=== PATIENT | female | born 1980 | race African-American/Black ===

== ENCOUNTER 2018-06-02 18:21 | Emergency (ER) | payer SELFPAY ==
--- NOTE | 2018-06-02 20:10 | ER Document Report ---
ED Headache - General Chief Complaint: Headache Stated Complaint: HEADACHE, NAUSEA Time Seen by Provider: 06/02/18 20:00 Mode of Arrival: Ambulatory Information source: Patient Notes: Patient presents to the ED with complaints of right sided headache x 5 days. Patient describes the pain as a dull pressure behind the R eye and in the R maxillary area. No radiation. Pain worse with light, bending over, and palpation. Alleviated with tylenol. She has intermittent nausea. She denies trauma or injury. Patient denies abrupt onset of the headache. She has had similar headaches in the past but this one is different because it continues to come back. She denies fever, chills, neck pain. Patient also noticed that they've been using hot bread baker pesticide in their home every day for 4 months. The directions say once a week. Patient contacted the company and they said to go to the ED for evaluation. TRAVEL OUTSIDE OF THE [place] IN LAST 30 DAYS: No - HPI Patient complains to provider of: Headache Onset: Last week Onset was: Gradual Timing: Gone now Quality of pain: Throbbing Severity: Mild Context: denies: CO exposure, Head injury Associated symptoms: Nausea/vomiting Exacerbated by: Light, Other - palpation, bending over Similar symptoms previously: Yes Recently seen / treated by doctor: No - Related Data Allergies/Adverse Reactions: No Known Allergies Allergy (Verified 05/07/13 17:55) Past Medical History - General Information source: Patient - Social History Smoking Status: Current Every Day Smoker Frequency of alcohol use: Occasional Drug Abuse: None Family History: Reviewed & Not Pertinent Patient has suicidal ideation: No Patient has homicidal ideation: No Renal/ Medical History: Denies: Hx Peritoneal Dialysis - Immunizations Hx Diphtheria, Pertussis, Tetanus Vaccination: No Review of Systems - Review of Systems Constitutional: No symptoms reported EENT: Sinus pressure Cardiovascular: No symptoms reported Respiratory: No symptoms reported Gastrointestinal: Nausea Genitourinary: No symptoms reported Female Genitourinary: No symptoms reported Musculoskeletal: No symptoms reported Skin: No symptoms reported Hematologic/Lymphatic: No symptoms reported Neurological/Psychological: No symptoms reported -: Yes All other systems reviewed and negative Physical Exam - Notes Notes: PHYSICAL EXAMINATION: GENERAL: Well-appearing, well-nourished and in no acute distress. HEAD: Atraumatic, normocephalic. EYES: Pupils equal round and reactive to light, extraocular movements intact, conjunctiva are normal. Right maxillary sinus tenderness with palpation. ENT: Nares patent, oropharynx clear without exudates. Moist mucous membranes. NECK: Normal range of motion, supple without lymphadenopathy LUNGS: Breath sounds clear to auscultation bilaterally and equal. No wheezes rales or rhonchi. HEART: Regular rate and rhythm without murmurs Female : deferred Musculoskeletal: Normal range of motion, no pitting or edema. No cyanosis. NEUROLOGICAL: Cranial nerves grossly intact. Normal speech, normal gait. Normal sensory, motor exams PSYCH: Normal mood, normal affect. SKIN: Warm, Dry, normal turgor, no rashes or lesions noted. Course - Re-evaluation Re-evalutation: 06/02/18 20:18 Pain exacerbated with palpation of the R maxillary sinus and with bending over. She took tylenol prior to arrival and says that it has significantly reduced her headache. Neuro exam was done and is completely normal. Patient likely has sinusitis. I instructed the patient to continue taking Tylenol for symptom relief as this resolves her headache. I told her that she could also take [id number] Sudafed for symptoms. I instructed her to follow-up with her primary care physician this week and to return for any worsening symptoms. Patient feels comfortable with the plan of care. 06/02/18 20:22 Discharge - Discharge Clinical Impression: Sinusitis Qualifiers: Sinusitis location: maxillary Chronicity: acute Recurrence: not specified as recurrent Qualified Code(s): J01.00 - Acute maxillary sinusitis, unspecified Condition: Good Disposition: HOME, SELF-CARE Instructions: Sinusitis ([facility]) Prescriptions: Amox Tr/Potassium Clavulanate [Augmentin 875-125 Tablet] 1 tab PO BID 7 Days #14 tablet Referrals: RONALD SPEARS MD [ACTIVE STAFF] - Follow up as needed
[2018-06-02 20:26] VITALS: BP 139/85
== END 2018-06-02 20:29 | disposition home or self-care (01) ==
LOC: ER 18:21
DX: J01.00 Acute maxillary sinusitis, unspecified (principal); R51 Headache; R11.2 Nausea with vomiting, unspecified; F17.200 Nicotine dependence, unspecified, uncomplicated; Z77.098 Contact with and (suspected) exposure to other hazardous, chiefly nonmedicinal, chemicals
CPT/HCPCS: 82962; 99284

== ENCOUNTER 2018-06-07 15:10 | Emergency (ER) | payer SELFPAY ==
[2018-06-07 15:35] VITALS: BP 124/66
--- NOTE | 2018-06-07 16:11 | ER Document Report ---
HPI - HPI Patient complains to provider of: Headache sinus pain Time Seen by Provider: 06/07/18 15:53 Onset: Other Onset/Duration: Persistent Quality of pain: Pressure Severity: Severe Pain Level: 4 Context: Patient presents to the emergency department with complaints of headache sinus pain. She was evaluated for same symptoms on June 02. She was placed on antibiotics pain medication and Claritin. She reports she is still hurting even while she is taking the pain medication. She denies fever vomiting diarrhea. She reports she is never had sinus issues in the past. Is not new to the area. She complains the pain is right frontal, pressure feeling. Denies increased pain when she bends over. No complaints of visual issues. No complaints of dizziness. Associated Symptoms: None Exacerbated by: Denies Relieved by: Denies Similar symptoms previously: Yes Recently seen / treated by doctor: Yes - REPRODUCTIVE Reproductive: DENIES: : Past Medical History - General Information source: Patient Last Menstrual Period: 05/13/18 - Social History Smoking Status: Current Every Day Smoker Cigarette use (# per day): Yes Frequency of alcohol use: None Drug Abuse: None Lives with: Family Family History: Reviewed & Not Pertinent Patient has suicidal ideation: No Patient has homicidal ideation: No - Medical History Medical History: Negative Renal/ Medical History: Denies: Hx Peritoneal Dialysis Surgical Hx: Negative - Immunizations Hx Diphtheria, Pertussis, Tetanus Vaccination: No Vertical Provider Document - CONSTITUTIONAL Agree With Documented VS: Yes Exam Limitations: No Limitations General Appearance: WD/WN, No Apparent Distress - nonToxic looking - INFECTION CONTROL TRAVEL OUTSIDE OF THE [place] IN LAST 30 DAYS: No - HEENT HEENT: Atraumatic, Normocephalic, PERRLA. negative: Conjuctival Injection, Pharyngeal Exudate, Pharyngeal Erythema, Tympanic Membrane Red Notes: no c/o pain upon palpation of sinuses. She reports pain is deep inside. - NECK Neck: Normal Inspection, Supple. negative: Lymphadenopathy-Left, Lymphadenopathy-Right - RESPIRATORY Respiratory: No Respiratory Distress - CARDIOVASCULAR Cardiovascular: Regular Rate - MUSCULOSKELETAL/EXTREMETIES Musculoskeletal/Extremeties: MAEW, FROM - NEURO Level of Consciousness: Awake, Alert, Appropriate Motor/Sensory: No Motor Deficit - DERM Integumentary: Warm, Dry, No Rash Course - Re-evaluation Re-evalutation: 06/07/18 17:[address] Phi Peck called regarding patient's CT scan. He reports more than likely it is a sinus infection but he is concerned that a lesion cannot be excluded. advises ENT follow-up. dr ellington contacted via the hospital kraft digester operator 06/07/18 17:[address] Patient on updated on plan of care to include prolonged Augmentin Claritin and Flonase nasal sinus rinses and Afrin. She was also instructed to contact Dr. ellington on Sunday for an appointment. She verbalized understanding to all instructions. Patient declined further pain medication reports ibuprofen is working fine for her. Dictation of this chart was performed using voice recognition software; therefore, there may be some unintended grammatical errors. - Vital Signs Vital signs: Temp Pulse Resp BP Pulse Ox 98.3 F 98 18 124/66 98 06/07/18 15:34 06/07/18 15:34 06/07/18 15:34 06/07/18 15:34 06/07/18 15:34 - Diagnostic Test Radiology reviewed: Image reviewed, Reports reviewed - EXAM DESCRIPTION: CT HEAD WITHOUT COMPLETED DATE/TIME: 06/07/2018 4:20 pm REASON FOR STUDY: headache, sinus pain COMPARISON: 03/10/2009 TECHNIQUE: Axial images acquired through the brain without intravenous contrast. Images reviewed with bone, brain and subdural windows. Additional sagittal and coronal reconstructions were generated. Images stored on PACS. All CT scanners at this facility use dose modulation, iterative reconstruction, and/or weight based dosing when appropriate to reduce radiation dose to as low as reasonably achievable (ALARA). [facility]: Dose Right [facility]: CareDose [facility]: Dose Right [facility]: Teradose 4D [facility]: [employer] RADIATION DOSE: CT Rad equipment meets quality standard of care and radiation dose reduction techniques were employed. CTDIvol: 53.2 mGy. DLP: 1017 mGy-cm. mGy. LIMITATIONS: None. FINDINGS: VENTRICLES: Normal size and contour. CEREBRUM: No masses. No hemorrhage. No midline shift. No evidence for acute infarction. Normal pulido/white matter differentiation. No areas of low density in the white matter. CEREBELLUM: No masses. No hemorrhage. No alteration of density. No evidence for acute infarction. EXTRAAXIAL SPACES: No fluid collections. No masses. ORBITS AND GLOBE: No intra- or extraconal masses. Normal contour of globe without masses. CALVARIUM: No fracture. PARANASAL SINUSES: There is opacification of the left maxillary sinus and ostiomeatal complex. There is associated thinning of the medial maxillary sinus wall mild mucosal thickening within the adjacent ethmoid air cells. The retro maxillary fat planes well preserved. No evidence of intracranial or intraorbital extension. Remaining paranasal sinuses and mastoid cells are clear. Mild leftward nasal septal deviation. SOFT TISSUES: No mass or hematoma. OTHER: No other significant finding. IMPRESSION: Opacification of the left maxillary sinus with associated thinning of the medial maxillary sinus wall and middle turbinate. There is associated mild mucosal thickening of the ethmoid air cells. Findings likely related to sinus disease although underlying lesion is not entirely excluded. No evidence of intracranial, retro maxillary or orbital involvement. No additional evidence of acute intracranial abnormality. EVIDENCE OF ACUTE STROKE: NO. Case discussed with Erica Gaspar at the time of interpretation. COMMENT: Quality ID # [id number]: Final reports with documentation of one or more dose reduction techniques (e.g., Automated exposure control, adjustment of the mA and/or kV according to patient si ze, use of iterative reconstruction technique) TECHNICAL DOCUMENTATION: JOB ID: [id number] [employer]- All Rights Reserved Reading location - IP/workstation name: [email or web address]- Dictated by: PHI MORALES DO [id number] CC: ERICA GASPAR NP > 06/07/18 1648 Principal Medical Terminologist Name: PHI MORALES Provider ID: [id number] - Consults [facility] Time consulted: 17:00 Reason for consultation: 06/07/18 17:[address] bauman contacted for CT results. He advised continue Augmentin extend for 14 days, Flonase, Afrin, nasal sinus rinses, Claritin. He also requests the patient contact him on Sunday for an appointment Discharge - Discharge Clinical Impression: Sinus pain Headache Qualifiers: Headache type: unspecified Headache chronicity pattern: unspecified pattern Intractability: not intractable Qualified Code(s): R51 - Headache Sinus infection Qualifiers: Sinusitis location: unspecified location Chronicity: acute Recurrence: not specified as recurrent Qualified Code(s): J01.90 - Acute sinusitis, unspecified Condition: Stable Disposition: HOME, SELF-CARE Instructions: Augmentin ([facility]), ENT, Headache ([facility]), Use of Dntv-Yiq-Yujoojx Ibuprofen ([facility]), Nasal Sprays and Drops ([facility]) Additional Instructions: *You have been evaluated for headache, sinus infection *Take medication as prescribed *Nasal sinus rinse Twice a day *Take Tylenol or motrin as indicated *Follow up with Dr Ellington Sunday, call for an appointment *Return to ED for increasing fever, cough, worsening condition, changes, needs Prescriptions: Amox Tr/Potassium Clavulanate [Augmentin 875-125 mg Tablet] 1 tab PO BID #18 tablet Fluticasone Propionate [Flonase Nasal [place] 50 Mcg/[place] 16 gm] 1 spray NASL Q12 #1 inhaler Loratadine [Claritin 10 mg Tablet] 10 mg PO DAILY #30 tablet Oxymetazoline HCl [Afrin 0.05% Nasal [place] 15 ml Bottle] 1 spray NASL ASDIR PRN #1 bottle PRN Reason: Forms: Elevated Blood Pressure Referrals: MARCELINO ELLINGTON MD [ACTIVE STAFF] - 06/10/18 (call for an appointment Sunday)
--- NOTE | 2018-06-07 16:48 | RADIOLOGY REPORT (SQ) ---
EXAM DESCRIPTION: CT HEAD WITHOUT COMPLETED DATE/TIME: 06/07/2018 4:20 pm REASON FOR STUDY: headache, sinus pain COMPARISON: 03/10/2009 TECHNIQUE: Axial images acquired through the brain without intravenous contrast. Images reviewed wi th bone, brain and subdural windows. Additional sagittal and coronal reconstructions were generated. Images stored on PACS. All CT scanners at this facility use dose modulation, iterative reconstruction, and/or weight based d osing when appropriate to reduce radiation dose to as low as reasonably achievable (ALARA). [facility]: Dose Right [facility]: CareDose [facility]: Dose Right [facility]: Teradose 4D [facility]: [employer] RADIATION DOSE: CT Rad equipment meets quality standard of care and radiation dose reduction techniq ues were employed. CTDIvol: 53.2 mGy. DLP: 1017 mGy-cm. mGy. LIMITATIONS: None. FINDINGS: VENTRICLES: Normal size and contour. CEREBRUM: No masses. No hemorrhage. No midline shift. No evidence for acute infarction. Normal gra y/white matter differentiation. No areas of low density in the white matter. CEREBELLUM: No masses. No hemorrhage. No alteration of density. No evidence for acute infarction. EXTRAAXIAL SPACES: No fluid collections. No masses. ORBITS AND GLOBE: No intra- or extraconal masses. Normal contour of globe without masses. CALVARIUM: No fracture. PARANASAL SINUSES: There is opacification of the left maxillary sinus and ostiomeatal complex. There is associated thinning of the medial maxillary sinus wall mild mucosal thickening within the adjacen t ethmoid air cells. The retro maxillary fat planes well preserved. No evidence of intracranial or intraorbital extension. Remaining paranasal sinuses and mastoid cells are clear. Mild leftward nasa l septal deviation. SOFT TISSUES: No mass or hematoma. OTHER: No other significant finding. IMPRESSION: Opacification of the left maxillary sinus with associated thinning of the medial maxilla ry sinus wall and middle turbinate. There is associated mild mucosal thickening of the ethmoid air c ells. Findings likely related to sinus disease although underlying lesion is not entirely excluded. No evidence of intracranial, retro maxillary or orbital involvement. No additional evidence of acute intracranial abnormality. EVIDENCE OF ACUTE STROKE: NO. Case discussed with Erica Casanova at the time of interpretation. COMMENT: Quality ID # [id number]: Final reports with documentation of one or more dose reduction techniques (e.g., Automated exposure control, adjustment of the mA and/or kV according to patient size, use of iterative reconstruction technique) TECHNICAL DOCUMENTATION: JOB ID: [id number] [employer]- All Rights Reserved Reading location - IP/workstation name: [email or web address]
== END 2018-06-07 17:45 | disposition home or self-care (01) ==
LOC: ER 15:10
DX: J01.90 Acute sinusitis, unspecified (principal); R51 Headache; F17.210 Nicotine dependence, cigarettes, uncomplicated
CPT/HCPCS: 70450; 99283

== ENCOUNTER 2018-06-13 18:45 | Emergency (ER) | payer SELFPAY ==
[2018-06-13] MEDS ORDERED: NORMAL SALINE 1000 ML 1,000 ML IV ONE (19:15)
[2018-06-13] MEDS ORDERED: METOCLOPRAMIDE HCL INJ/PF 10 MG/2 ML SDV IV ONE ×2 (19:15→23:48)
[2018-06-13] MEDS ORDERED: DEXAMETHASONE SOD PHOS INJ 10 MG/1 ML VIAL IV ONE (19:15)
--- NOTE | 2018-06-13 19:17 | ER Document Report ---
ED Medical Screen (RME) - General Chief Complaint: Headache Stated Complaint: HEADACHE Time Seen by Provider: 06/13/18 19:05 Notes: Patient is a 37-year-old female that presents to the emergency department for chief complaint of headache. Patient states she is been having headache for some time, was diagnosed with a sinus infection on the , went to follow-up with ENT, was supposed to have a repeat CT scan which she did not have you, she is had associated nausea which is new, the headache is mainly on the right side of her head, with associated photophobia. ROS: Other than noted above, the 12 point review of systems was reviewed with the patient and were negative, all pertinent findings are included in the HPI. PHYSICAL EXAMINATION: Vital signs reviewed. GENERAL: Tearful on exam, appears uncomfortable HEAD: Atraumatic, normocephalic. EYES: Pupils equal round extraocular movements intact, conjunctiva are normal. ENT: Nares patent as is nontender, TMs appear normal. NECK: Normal range of motion CV: Heart regular rate and rhythm LUNGS: No respiratory distress Musculoskeletal: Normal range of motion NEUROLOGICAL: Normal speech PSYCH: Tearful MDM: Patient seen and examined for rapid initial assessment. Vital signs reviewed. A comprehensive ED assessment and evaluation of the patient, analysis of test results and completion of the medical decision making process will be conducted by additional ED providers. *Note is created using voice recognition software and may contain spelling, syntax or grammatical errors. TRAVEL OUTSIDE OF THE [place] IN LAST 30 DAYS: No - Related Data Allergies/Adverse Reactions: No Known Allergies Allergy (Verified 05/07/13 17:55) Past Medical History - Social History Chew tobacco use (# tins/day): No Frequency of alcohol use: Occasional Drug Abuse: None Renal/ Medical History: Denies: Hx Peritoneal Dialysis - Immunizations Hx Diphtheria, Pertussis, Tetanus Vaccination: No Physical Exam - Vital signs Vitals: Temp Pulse Resp BP Pulse Ox 98.2 F 93 14 151/84 H 100 06/13/18 18:53 06/13/18 18:53 06/13/18 18:53 06/13/18 18:53 06/13/18 18:53 Course - Vital Signs Vital signs: Temp Pulse Resp BP Pulse Ox 98.2 F 93 14 151/84 H 100 06/13/18 18:53 06/13/18 18:53 06/13/18 18:53 06/13/18 18:53 06/13/18 18:53
[2018-06-13 19:54] LABS: ABSOLUTE BASOPHILS # (AUTO) 0.1 10^3/uL (0.0-0.2); ABSOLUTE EOSINOPHILS # (AUTO) 0.2 10^3/uL (0.0-0.6); ABSOLUTE LYMPHOCYTES (AUTO) 2.7 10^3/uL (0.5-4.7); ABSOLUTE MONOCYTES (AUTO) 0.7 10^3/uL (0.1-1.4); ABSOLUTE NEUT (AUTO) 5.8 10^3/uL (1.7-8.2); BASOPHILS % (AUTO) 1.2 % (0-2); EOSINOPHILS % (AUTO) 1.6 % (0-6); HEMATOCRIT 31.5 % (36.0-47.0); HEMOGLOBIN 10.6 g/dL (12.0-15.5); LYMPHOCYTES % (AUTO) 28.6 % (13-45); MEAN CORPUSCULAR HEMOGLOBIN 27.9 pg (27.0-33.4); MEAN CORPUSCULAR HGB CONC 33.8 g/dL (32.0-36.0); MEAN CORPUSCULAR VOLUME 83 fl (80-97); MONOCYTES % (AUTO) 7.2 % (3-13); PLATELET COUNT 472 10^3/uL (150-450); RED CELL DISTRIBUTION WIDTH 14.6 % (11.5-14.0); SEGMENTED NEUTROPHILS % (AUTO) 61.4 % (42-78); TOTAL CELLS COUNTED % (AUTO) 100 %; WHITE BLOOD COUNT 9.5 10^3/uL (4.0-10.5)
--- NOTE | 2018-06-13 20:17 | RADIOLOGY REPORT (SQ) ---
EXAM DESCRIPTION: CT HEAD WITHOUT IV CONTRAST COMPLETED DATE/TME: 06/13/2018 19:14 CLINICAL HISTORY: 37 years, Female, headache, recent sinusitis COMPARISON: 06/07/2018 CT brain TECHNIQUE: 198 Images stored on PACS. All CT scanners at this facility use dose modulation, iterative reconstruction, and/or weight based dosing when appropriate to reduce radiation dose to as low as reasonably achievable (ALARA). [facility]: Dose Right [facility]: CareDose [facility]: Dose Right [facility]: Teradose 4D [facility]: [employer] LIMITATIONS: None. FINDINGS: Globes are intact. Near complete opacification of the left maxillary sinus. No displaced or depressed skull fracture. No intra or extra-axial hemorrhage. CT is limited for evaluation of acute infarct. No CT evidence for large or territorial acute infarct. No mass or midline shift IMPRESSION: Left maxillary sinusitis. Remainder is unremarkable TECHNICAL DOCUMENTATION: Quality ID # [id number]: Final reports with documentation of one or more dose reduction techniques (e.g., Automated exposure control, adjustment of the mA and/or kV according to patient size, use of iterative reconstruction technique) copyright 2011 [employer]- All Rights Reserved
[2018-06-13 20:20] LABS: ALANINE AMINOTRANSFERASE 18 U/L (9-52); ALKALINE PHOSPHATASE 54 U/L (38-126); ANION GAP 10 (5-19); ASPARTATE AMINO TRANSFERASE 13 U/L (14-36); BILIRUBIN,DIRECT 0.2 mg/dL (0.0-0.4); BILIRUBIN,TOTAL 0.2 mg/dL (0.2-1.3); BLOOD UREA NITROGEN 7 mg/dL (7-20); CALCIUM 9.2 mg/dL (8.4-10.2); CARBON DIOXIDE 27 mmol/L (22-30); CHLORIDE 102 mmol/L (98-107); GLUCOSE 133 mg/dL (75-110); POTASSIUM 4.3 mmol/L (3.6-5.0); SODIUM 138.8 mmol/L (137-145); TOTAL PROTEIN 7.2 g/dL (6.3-8.2)
--- NOTE | 2018-06-14 00:10 | ER Document Report ---
ED General - General Chief Complaint: Headache Stated Complaint: HEADACHE Time Seen by Provider: 06/13/18 19:05 Notes: Patient is a 37-year-old female without chronic medical problems, presents complaining of pain over the right maxilla, right forehead and right temporal scalp that is been ongoing for 2-3 weeks. Patient describes as a throbbing, aching, constant pain. She states that she has tried BC powders with minimal to no relief. She has also been placed on Augmentin for empiric treatment of a possible sinusitis without any relief. Patient states that she has never had similar symptoms in the past although does have a history of headaches. Denies focal weakness, numbness or confusion. Has not had fever. TRAVEL OUTSIDE OF THE [place] IN LAST 30 DAYS: No - Related Data Allergies/Adverse Reactions: No Known Allergies Allergy (Verified 05/07/13 17:55) Past Medical History - General Information source: Patient - Social History Smoking Status: Current Every Day Smoker Chew tobacco use (# tins/day): No Frequency of alcohol use: Occasional Drug Abuse: None Lives with: Spouse/Significant other Family History: Reviewed & Not Pertinent Patient has suicidal ideation: No Patient has homicidal ideation: No Renal/ Medical History: Denies: Hx Peritoneal Dialysis - Immunizations Hx Diphtheria, Pertussis, Tetanus Vaccination: No Review of Systems - Review of Systems Notes: Constitutional: Negative for fever. HENT: Negative for sore throat. Positive for pain around the right maxillary and right frontal sinuses Eyes: Negative for visual changes. Cardiovascular: Negative for chest pain. Respiratory: Negative for shortness of breath. Gastrointestinal: Negative for abdominal pain, vomiting or diarrhea. Genitourinary: Negative for dysuria. Musculoskeletal: Negative for back pain. Skin: Negative for rash. Neurological: Positive for headache 10 point ROS negative except as marked above and in HPI. Physical Exam - Vital signs Vitals: Temp Pulse Resp BP Pulse Ox 98.2 F 93 14 151/84 H 100 06/13/18 18:53 06/13/18 18:53 06/13/18 18:53 06/13/18 18:53 06/13/18 18:53 Interpretation: Hypertensive Notes: PHYSICAL EXAMINATION: GENERAL: Appears moderately uncomfortable but in no acute distress HEAD: Atraumatic, normocephalic. EYES: Pupils equal round and reactive to light, extraocular movements intact, sclera anicteric, conjunctiva are normal. ENT: nares patent, oropharynx clear without exudates. Moist mucous membranes. Diffuse poor dentition. Tooth #2 is cracked, deep dental caries with gingival inflammation present. NECK: Normal range of motion, supple without lymphadenopathy LUNGS: Breath sounds clear to auscultation bilaterally and equal. No wheezes rales or rhonchi. HEART: Regular rate and rhythm without murmurs ABDOMEN: Soft, nontender, normoactive bowel sounds. No guarding, no rebound. No masses appreciated. EXTREMITIES: Normal range of motion, no pitting or edema. No cyanosis. NEUROLOGICAL: Face symmetric. Tongue protrudes midline. Extraocular motions intact. Pupils are 2 mm and equally reactive. Normal speech, normal gait. 5 out of 5 strength in both the distal and proximal upper and lower extremities bilaterally. Sensation is grossly intact throughout. Finger to nose testing normal. Pronator drift normal. PSYCH: Normal mood, normal affect. SKIN: Warm, Dry, normal turgor, no rashes or lesions noted. Course - Re-evaluation Re-evalutation: 06/13/18 23:48 Presentation of a headache that appears to be most consistent with tension versus migrainous type headache. Headache was not maximal in onset, patient has no focal neurologic deficits, no nuchal rigidity, vital signs within normal limits, no papilledema, and patient is overall well in appearance. Based on clinical history and examination I do not suspect an acute subarachnoid hemorrhage, dural venous sinus thrombosis, acute meningitis, or intercranial mass. Patient has undergone CT of the head without any acute findings. Labs likewise unremarkable. Patient has had resolution of her headache after receiving metoclopramide and dexamethasone. Of note, patient's tooth #2 is noted to be cracked and inflamed gingiva around it. I informed her that her headache could be coming from dentition and advised close patient follow-up with dentistry. At this time will discharge with return precautions and follow-up r ecommendations. Verbal discharge instructions given a the bedside and opportunity for questions given. Medication warnings reviewed. Patient is in agreement with this plan and has verbalized understanding of return precautions and the need for primary care follow-up in the next 24-72 hours. - Vital Signs Vital signs: Temp Pulse Resp BP Pulse Ox 98.1 F 86 14 138/74 H 98 06/14/18 00:17 06/14/18 00:17 06/14/18 00:17 06/14/18 00:17 06/14/18 00:17 - Laboratory Result Diagrams: 06/13/18 19:40 06/13/18 19:40 Laboratory results interpreted by me: 06/13/18 06/13/18 19:40 19:40 Hgb 10.6 L Hct 31.5 L RDW 14.6 H Plt Count 472 H Glucose 133 H AST 13 L - Diagnostic Test Radiology reviewed: Image reviewed, Reports reviewed Radiology results interpreted by me: 06/14/18 00:09 CT head: No acute intracranial bleed or mass Discharge - Discharge Clinical Impression: Dental caries Headache Qualifiers: Headache type: unspecified Headache chronicity pattern: acute headache Intractability: not intractable Qualified Code(s): R51 - Headache Condition: Good Disposition: HOME, SELF-CARE Additional Instructions: You have been seen in the Emergency Department (ED) for a headache. You may use the Fioricet that has been prescribed as needed for headache. As we have discussed, please follow up with your primary care doctor as soon as possible regarding today's ED visit and your headache symptoms. Please also follow-up with a dentist as your dental issues could also be contributing to your headaches. Call your doctor or return to the ED if you have a worsening headache, sudden and severe headache, confusion, slurred speech, facial droop, weakness or numbness in any arm or leg, extreme fatigue, or other symptoms that concern you. Prescriptions: Butalb/Acetaminophen/Caffeine [Fioricet (50-325-40 mg) Tablet] 1 tab PO Q4HP PRN #30 tab PRN Reason:
[2018-06-14 00:20] VITALS: BP 138/74
== END 2018-06-14 00:25 | disposition home or self-care (01) ==
LOC: ER 18:45
DX: K02.9 Dental caries, unspecified (principal); R51 Headache; F17.200 Nicotine dependence, unspecified, uncomplicated
CPT/HCPCS: 96376; 99284; 96361; 96374; 96375; 36415; 84703; 85025; 80053; 70450; J2765 ×2; J7030; J1100

== ENCOUNTER 2018-06-21 02:01 | Emergency (ER) | payer SELFPAY ==
[2018-06-21] MEDS ORDERED: HALOPERIDOL LACTATE INJ 5 MG/1 ML VIAL IV ONE (02:33)
[2018-06-21 02:45] LABS: ABSOLUTE BASOPHILS # (AUTO) 0.1 10^3/uL (0.0-0.2); ABSOLUTE EOSINOPHILS # (AUTO) 0.3 10^3/uL (0.0-0.6); ABSOLUTE MONOCYTES (AUTO) 0.5 10^3/uL (0.1-1.4); ABSOLUTE NEUT (AUTO) 8.9 10^3/uL (1.7-8.2); BASOPHILS % (AUTO) 0.5 % (0-2); EOSINOPHILS % (AUTO) 2.3 % (0-6); HEMATOCRIT 31.9 % (36.0-47.0); HEMOGLOBIN 10.7 g/dL (12.0-15.5); LYMPHOCYTES % (AUTO) 16.8 % (13-45); MEAN CORPUSCULAR HEMOGLOBIN 28.1 pg (27.0-33.4); MEAN CORPUSCULAR HGB CONC 33.7 g/dL (32.0-36.0); MEAN CORPUSCULAR VOLUME 83 fl (80-97); MONOCYTES % (AUTO) 4.3 % (3-13); PLATELET COUNT 493 10^3/uL (150-450); RED BLOOD COUNT 3.82 10^6/uL (3.72-5.28); RED CELL DISTRIBUTION WIDTH 14.7 % (11.5-14.0); SEGMENTED NEUTROPHILS % (AUTO) 76.1 % (42-78); TOTAL CELLS COUNTED % (AUTO) 100 %; WHITE BLOOD COUNT 11.8 10^3/uL (4.0-10.5)
[2018-06-21 02:58] LABS: ANION GAP 8 (5-19); BLOOD UREA NITROGEN 13 mg/dL (7-20); CALCIUM 9.1 mg/dL (8.4-10.2); CARBON DIOXIDE 29 mmol/L (22-30); CHLORIDE 103 mmol/L (98-107); GLUCOSE 146 mg/dL (75-110); POTASSIUM 3.7 mmol/L (3.6-5.0); SODIUM 139.7 mmol/L (137-145)
--- NOTE | 2018-06-21 03:32 | ER Document Report ---
ED General - General Chief Complaint: Headache >24 hrs old Stated Complaint: PERSISTENT HEADACHE Time Seen by Provider: 06/21/18 02:32 Notes: Patient is a 37-year-old female without chronic medical problems who presents with ongoing intermittent headache. I saw this patient on 06/13. The patient states that she did follow-up with both ENT as well as dentistry but they were unable to identify the cause of her headache and do not believe that is coming from either a dental or ENT source. The patient states that the headache is a daily headache that is starting from around her right eye and extending above the top of her head to the base of her skull. It is a throbbing, aching, constant headache. No obvious exacerbating factors. She states that when she takes ibuprofen it does almost completely relieve the headache but it does come back within 6-7 hours of the last dose of ibuprofen. She notes that she has had some nausea but no focal weakness, numbness, fever or confusion. TRAVEL OUTSIDE OF THE [place] IN LAST 30 DAYS: No - Related Data Allergies/Adverse Reactions: No Known Allergies Allergy (Verified 06/21/18 02:02) Past Medical History - General Information source: Patient - Social History Smoking Status: Never Smoker Frequency of alcohol use: None Drug Abuse: None Lives with: Spouse/Significant other Family History: Reviewed & Not Pertinent Renal/ Medical History: Denies: Hx Peritoneal Dialysis - Immunizations Hx Diphtheria, Pertussis, Tetanus Vaccination: No Review of Systems - Review of Systems Notes: Constitutional: Negative for fever. HENT: Negative for sore throat. Eyes: Negative for visual changes. Cardiovascular: Negative for chest pain. Respiratory: Negative for shortness of breath. Gastrointestinal: Negative for abdominal pain, vomiting or diarrhea. Genitourinary: Negative for dysuria. Musculoskeletal: Negative for back pain. Skin: Negative for rash. Neurological: Positive for persistent headache 10 point ROS negative except as marked above and in HPI. Physical Exam - Vital signs Vitals: Temp Pulse Resp BP Pulse Ox 98.0 F 88 22 H 123/72 98 06/21/18 02:10 06/21/18 02:10 06/21/18 02:10 06/21/18 02:10 06/21/18 02:10 Interpretation: Normal Notes: PHYSICAL EXAMINATION: GENERAL: Well-appearing, well-nourished and in no acute distress. HEAD: Atraumatic, normocephalic. EYES: Pupils equal round and reactive to light, extraocular movements intact, sclera anicteric, conjunctiva are normal. ENT: nares patent, oropharynx clear without exudates. Moist mucous membranes. NECK: Normal range of motion, supple without lymphadenopathy LUNGS: Breath sounds clear to auscultation bilaterally and equal. No wheezes rales or rhonchi. HEART: Regular rate and rhythm without murmurs ABDOMEN: Soft, nontender, normoactive bowel sounds. No guarding, no rebound. No masses appreciated. EXTREMITIES: Normal range of motion, no pitting or edema. No cyanosis. NEUROLOGICAL: Face symmetric. Tongue protrudes midline. Extraocular motions intact. Pupils are 2 mm and equally reactive. Normal speech, normal gait. 5 out of 5 strength in both the distal and proximal upper and lower extremities bilaterally. Sensation is grossly intact throughout. Finger to nose testing normal. Pronator drift normal. PSYCH: Normal mood, normal affect. SKIN: Warm, Dry, normal turgor, no rashes or lesions noted. Course - Re-evaluation Re-evalutation: 06/21/18 03:33 Presentation of an ongoing headache that is been present for approximately 3 weeks. Patient is overall nontoxic in appearance. Headache was not maximal in onset, patient has no focal neurologic deficits, no nuchal rigidity, vital signs within normal limits, no papilledema, and patient is overall well in appearance. However, given the ongoing nature of the patient's headache the only alternative diagnosis that would be of concern would be a dural venous sinus thrombosis. Patient is ready had imaging of the brain that excluded a large intracranial mass. The characterization of her pain and history is not consis tent with subarachnoid hemorrhage. I do not believe she has a meningitis given duration of symptoms, lack of neck pain, lack of fever, normal white blood cell count on multiple occasions. CT venogram will be undertaken to definitively exclude a venous thrombosis. I have informed the patient that if this is unremarkable I would recommend a neurology referral as I do not have any alternative considerations for why she continues to have ongoing headaches. 06/21/18 03:49 CT venogram unremarkable. At this time will discharge with return precautions and follow-up recommendations. Verbal discharge instructions given a the bedside and opportunity for questions given. Medication warnings reviewed. Patient is in agreement with this plan and has verbalized understanding of return precautions and the need for neurology follow-up in the next 24-72 hours. - Vital Signs Vital signs: Temp Pulse Resp BP Pulse Ox 98.0 F 88 22 H 123/72 98 06/21/18 02:10 06/21/18 02:10 06/21/18 02:10 06/21/18 02:10 06/21/18 02:10 - Laboratory Result Diagrams: 06/21/18 02:32 06/21/18 02:32 Laboratory results interpreted by me: 06/21/18 06/21/18 02:32 02:32 WBC 11.8 H Hgb 10.7 L Hct 31.9 L RDW 14.7 H Plt Count 493 H Absolute Neutrophils 8.9 H Glucose 146 H - Diagnostic Test Radiology reviewed: Reports reviewed Discharge - Discharge Clinical Impression: Headache Qualifiers: Headache type: unspecified Headache chronicity pattern: chronic headache Intractability: intractable Qualified Code(s): R51 - Headache Condition: Good Disposition: HOME, SELF-CARE Additional Instructions: The exact cause of your ongoing headaches is uncertain. The CT scan today with contrast does not show any evidence of a blood clot in the venous structures of your brain. Your blood work again is unremarkable. At this point I strongly recommend a neurology referral. These are experts in headaches and will hopefully be able to help establish the cause of your headache as well as prevent recurrence. I strongly encourage you to return to the emergency department if you develop a fever greater than 100.4 F, weakness, numbness, confusion or worsening of your headache. [facility] Address: [address] [place] [address], [place] [address]
--- NOTE | 2018-06-21 03:40 | RADIOLOGY REPORT (SQ) ---
CLINICAL HISTORY: ct venogram please, YIP since 05/30/18 COMPARISON: None. TECHNIQUE: CT HEAD WITHOUT THEN WITH IV CONTRAST on 06/21/2018 2:32 AM HOT PATCHER This exam was performed according to our departmental dose-optimization program, which includes automated exposure control, adjustment of the mA and/or kV according to patient size and/or use of iterative reconstruction technique. FINDINGS: There is no acute hemorrhage, mass effect or midline shift. Zapata-white differentiation is preserved. There is no hydrocephalus. There is no significant volume loss for age. The calvarium is intact. Orbits and globes are unremarkable. There is moderate thickening of the left maxillary sinus. Mastoid air cells are clear. The superior sagittal sinus, inferior sagittal sinus, vein of Brennan, straight sinus, and to lesser degree the transverse and sigmoid sinuses are all patent. Study is somewhat suboptimal. IMPRESSION: No acute intracranial findings.
[2018-06-21 04:01] VITALS: BP 133/75
== END 2018-06-21 04:02 | disposition home or self-care (01) ==
LOC: ER 02:01
DX: R51 Headache (principal); R11.0 Nausea
CPT/HCPCS: 99284; 96374; 36415; 85025; 80048; 70470; J1630

== ENCOUNTER 2018-07-06 21:23 | Emergency (ER) | payer SELFPAY ==
--- NOTE | 2018-07-06 23:23 | ER Document Report ---
ED General - General Chief Complaint: Headache Stated Complaint: HEADACHE Time Seen by Provider: 07/06/18 22:41 Notes: Patient is a pleasant 37-year-old female presents with complaint of a headache. Patient says that she has had recurrent headaches now for a while. She is actually scheduled for an MRI in the morning. She is seeing a neurologist. She was referred to an paper processing machine helper who saw some edema around the optic nerve. She says that her headache is actually more mild than usual however she is having some so she symptoms which are different from her and that she says she feels kind of a weird sensation around her nose and lips. She denies any blurred vision. She denies any vomiting. Some nausea. No recent trauma or injuries. She was seen here in the past and had a CT scan of her head which is negative. She also had a CT venogram of her head which showed no evidence of venous sinus thrombosis. No weakness or numbness into the extremities. No fevers. No recent infections. TRAVEL OUTSIDE OF THE [place] IN LAST 30 DAYS: No - Related Data Allergies/Adverse Reactions: No Known Allergies Allergy (Verified 07/06/18 21:30) Past Medical History - Social History Smoking Status: Former Smoker Frequency of alcohol use: None Drug Abuse: None Family History: Reviewed & Not Pertinent Patient has suicidal ideation: No Patient has homicidal ideation: No Renal/ Medical History: Denies: Hx Peritoneal Dialysis - Immunizations Hx Diphtheria, Pertussis, Tetanus Vaccination: No Review of Systems - Review of Systems Notes: My Normal Review Basic REVIEW OF SYSTEMS: CONSTITUTIONAL : Denies fever, chills, or sweats. Denies recent illness. EENT: Denies eye, ear, throat, or mouth pain or symptoms. Denies nasal or sinus congestion. GASTROINTESTINAL: Denies abdominal pain. Denies nausea, vomiting, or diarrhea. MUSCULOSKELETAL: Denies neck or back pain or joint pain or swelling. SKIN: Denies rash or skin lesions. NEUROLOGICAL: Denies altered mental status or loss of consciousness. Has a headache. Denies weakness or paralysis or loss of use of either side. Denies problems with gait or speech. Denies sensory or motor loss. PSYCHIATRIC: Denies anxiety or stress or depression. ALL OTHER SYSTEMS REVIEWED AND NEGATIVE. Physical Exam - Vital signs Vitals: Temp Pulse Resp BP Pulse Ox 98.4 F 73 18 148/83 H 100 07/06/18 21:31 07/06/18 21:31 07/06/18 21:31 07/06/18 21:31 07/06/18 21:31 - Notes Notes: General Appearance: Well nourished, alert, cooperative, no acute distress, no obvious discomfort. well-appearing. Vitals: reviewed, See vital signs table. Head: no swelling or tenderness to the head Eyes: PERRL, EOMI, Conjuctiva clear Mouth: No decreasd moisture Lungs: No wheezing, No rales, No rhonci, No accessory muscle use, good air exchange bilaterally. Heart: Normal rate, Regular rythm, No murmur, no rub Extremities: strength 5/5 in all extremities, good pulses in all extremities, no swelling or tenderness in the extremities, no edema. Skin: warm, dry, appropriate color, no rash Neuro: speech clear, oriented x 3, normal affect, responds appropriately to questions. cranial nerves II through XII are intact. Distal sensation intact. Patient moves all extremities without difficulty. Course - Re-evaluation Re-evalutation: 07/07/18 08:20 Per the patient's history of having some optic disc edema to do a lumbar puncture if she is only having some evidence of optic disc edema. I informed her we do this to measure the spinal fluid pressure and if it is higher than we can drain off some the fluid to lower the pressure to a safe range. I informed her if her pressure remains higher than she could have demonstrated eyes any vision loss. Patient shows understanding of this but she says she is very anxious and nervous about lumbar puncture. Says she does not 1 do not want one done at this time. She is understanding that she could have damaged her eyes but says she prefers to get her MRI this coming morning and to see how her symptoms do and to return to the ER if she has any progression of her symptoms. I informed her that she needs to have a very low threshold to return to the ER and that she actually must return to ER immediately if she has any visual changes whatsoever or worsening headache or pain. Patient agrees with plan will be discharged home as she requests. Dictation of this chart was performed using voice recognition software; therefore, there may be some unintended grammatical errors. - Vital Signs Vital signs: Temp Pulse Resp BP Pulse Ox 97.9 F 66 16 134/78 H 100 07/06/18 23:44 07/06/18 23:44 07/06/18 23:44 07/06/18 23:44 07/06/18 23:44 Discharge - Discharge Clinical Impression: Headache Qualifiers: Headache type: unspecified Headache chronicity pattern: episodic headache Intractability: not intractable Qualified Code(s): R51 - Headache Condition: Stable Disposition: HOME, SELF-CARE Additional Instructions: As discussed with you I suspect your headache may be related to something called benign intracranial hypertension. This is an increase in the pressure of the cerebral spinal fluid which can cause headaches. Of concern is that this can eventually lead to damage to your eyes which could lead to loss of vision. This is why we recommend having a lumbar puncture performed today as we can check the pressure in your spinal fluid and drain off some the spinal fluid to lower it. This will help prevent further headaches and help prevent any loss of vision or damage to your eyes. We respect your decision to wait and not have the lumbar puncture performed we want to have a very low threshold to return to the ER if he start having any visual changes or worsening headache as these are signs that you are having damaged your your eyes which may be irreversible. Please get your MRI tomorrow as scheduled. Please follow-up closely with your neurologist. Return to the ER anytime as we are happy to recheck you and again offer further testing and treatment.
[2018-07-06 23:46] VITALS: BP 134/78
== END 2018-07-06 23:46 | disposition home or self-care (01) ==
LOC: ER 21:23
DX: R51 Headache (principal); Z87.891 Personal history of nicotine dependence
CPT/HCPCS: 99284

== ENCOUNTER → 2018-07-31 | Outpatient (CLI) | payer SELFPAY ==
--- NOTE | 2018-08-01 11:07 | RADIOLOGY REPORT (SQ) ---
EXAM DESCRIPTION: CT SINUSES FOR ENT COMPLETED DATE/TIME: 07/31/2018 7:28 pm REASON FOR STUDY: J01.00 ACUTE MAXILLARY SINUSITIS, UNSPECIFIED J01.00 ACUTE MAXILLARY SINUSITIS, U NSPECIFIED COMPARISON: None. TECHNIQUE: Noncontrast scanning through the paranasal sinuses using bone algorithm. Reconstructed MPR images reviewed. All images stored on PACS. All CT scanners at this facility use dose modulation, iterative reconstruction, and/or weight based d osing when appropriate to reduce radiation dose to as low as reasonably achievable (ALARA). [facility]: Dose Right [facility]: CareDose [facility]: Dose Right [facility]: Teradose 4D [facility]: Hire Space RADIATION DOSE: CT Rad equipment meets quality standard of care and radiation dose reduction techniq ues were employed. CTDIvol: 47.0 mGy. DLP: 976 mGy-cm.mGy. LIMITATIONS: None. FINDINGS: Atrophy or prior surgery left middle nasal turbinate. Mucosal thickening left maxillary s inus. Infundibula and nasofrontal recesses are patent. Leftward deviation of the nasal septum. IMPRESSION: Chronic left maxillary sinusitis. TECHNICAL DOCUMENTATION: JOB ID: [id number] Quality ID # [id number]: Final reports with documentation of one or more dose reduction techniques (e.g., Au tomated exposure control, adjustment of the mA and/or kV according to patient size, use of iterative reconstruction technique) 2010 [employer]- All Rights Reserved Reading location - IP/workstation name: [email or web address]
== END ==
LOC: RAD 18:31
PROVIDERS: ATTEND Otolaryngology
DX: J01.00 Acute maxillary sinusitis, unspecified (principal); J34.2 Deviated nasal septum; R51 Headache
CPT/HCPCS: 70486